=== PATIENT | female | born 1995 | race Caucasian/White ===

== ENCOUNTER 2017-09-08 10:19 | Outpatient (CLI) | payer OTHER ==
[~2017-09-08] VITALS: Ht 175.3 cm; Wt 64.0 kg
[2017-09-08 10:33] VITALS: BP 128/64
[2017-09-08] MEDS ORDERED: PREN-3 PO (10:41)
[2017-09-08] MEDS ORDERED: IRON1TAB60 PO (10:42)
[2017-09-08 10:57] LABS: DAU SCREEN DISCLAIMER
== END 2017-09-08 12:10 | disposition home or self-care (01) ==
LOC: LDOP 10:19
PROVIDERS: ATTEND Student in an Organized Health Care Education/Training Program
DX: O36.8130 Decreased fetal movements, third trimester, not applicable or unspecified (principal); O36.5930 Maternal care for other known or suspected poor fetal growth, third trimester, not applicable or unspecified; Z3A.36 36 weeks gestation of pregnancy
CPT/HCPCS: 59025; 76819; 80307; 81001; 87086; 99201; G0463; G0479